=== PATIENT | female | born 1955 | race Asian ===

== ENCOUNTER 2023-04-25 04:15 | Inpatient (IN) | payer MEDICARE, BC ==
[~2023-04-25] VITALS: Ht 162.6 cm; Wt 79.5 kg
[~2023-04-25 04:15] MED LIST: AML5T PO; ATOR20TA PO; HYDR12.59 PO; METF-370 PO; VALS40TA2 PO
[2023-04-25 05:23] LABS: Urine Bacteria MANY /hpf (None Seen); Urine Blood 3+ /uL (Negative); Urine Clarity Clear (Clear); Urine Color Yellow (Yellow); Urine Mucus FEW (None Seen); Urine Protein, UAD TRACE (Negative); Urine Specific Gravity 1.012 (1.001-1.035); Urine Urobilinogen Normal (Negative); Urine WBC 6 /hpf (0 - 5)
[2023-04-25 06:43] LABS: Basophils # (auto) 0.1 10 ^3/uL (0-0.2); Basophils % (auto) 0.5 % (0.0-2.0); Eosinophils # (auto) 0.1 10 ^3/uL (0-0.8); Eosinophils % (auto) 0.6 % (0.0-7.0); Hemoglobin 13.9 g/dL (12.2-16.2); Lymphocytes # (auto) 1.5 10 ^3/uL (0.4-5.4); Lymphocytes % (auto) 13.8 % (10.0-50.0); Mean Corpuscular Hemoglobin 30.9 pg (28.0-32.0); Mean Corpuscular Volume 93.4 fL (80.0-100.0); Monocytes # (auto) 0.7 10 ^3/uL (0-1.3); Monocytes % (auto) 6.6 % (0.0-12.0); Neutrophils # (auto) 8.5 10 ^3/uL (1.6-8.6); Neutrophils % (auto) 78.5 % (37.0-80.0); Red Blood Cells 4.49 10^6/uL (4.0-5.20); Red Cell Distribution Width 14.6 % (11.8-14.3); White Blood Cell 10.9 10^3/uL (4.4-10.8)
[2023-04-25 06:56] LABS: Potassium 3.9 mmol/L (3.5-5.1)
[2023-04-25 07:05] LABS: Albumin 4.2 g/dL (3.4-5.0); BUN/Creatinine Ratio 12.8 (10.0-20.0); Bilirubin, Total 0.8 mg/dL (0.2-1.0); Calcium 9.5 mg/dL (8.5-10.1); Total Protein 8.5 g/dL (6.4-8.2)
[2023-04-25] MEDS ORDERED: SODIUM CHLORIDE 0.9% 1,000 ML IV ONE (08:45)
[2023-04-25] MEDS ORDERED: MORPHINE SULFATE INJ 2 MG/ml SYRG IV ONE (08:45)
[2023-04-25] MEDS ORDERED: KETOROLAC TROMETH 30 MG/ML 1ML VIAL IV ONE (08:45)
[2023-04-25] MEDS ORDERED: ONDANSETRON HCL 4 MG/2 ML VIAL IV ONE (08:45)
[2023-04-25 09:00] VITALS: PULSE 90; RESP 26; O2SAT 96
[2023-04-25] MEDS ORDERED: TAMSULOSIN HYDROCHLORIDE 0.4 MG CAP PO ONE (09:00)
[2023-04-25] MEDS ORDERED: DEXTROSE (50%) 50ML SYRG IV PRN (09:00)
[2023-04-25] MEDS ORDERED: MORPHINE SULFATE INJ 2 MG/ml SYRG IV PRN (09:00)
[2023-04-25] MEDS ORDERED: ONDANSETRON HCL 4 MG/2 ML VIAL IV PRN (09:00)
[2023-04-25] MEDS ORDERED: DOCUSATE SOD 100 MG CAP PO PRN (09:00)
[2023-04-25] MEDS ORDERED: VALS40TA2 PO (10:36)
[2023-04-25] MEDS ORDERED: HYDR12.59 PO (10:36)
[2023-04-25] MEDS ORDERED: METF-370 PO (10:36)
[2023-04-25] MEDS: amLODIPine BESYLATE 5 MG TAB PO SCH (10:38)
[2023-04-25] MEDS: SODIUM CHLORIDE 0.9% 1,000 ML IV SCH ×2 (10:38→15:31)
[2023-04-25] MEDS: InsuLIN REG 1unit/0.01ml Soln (100units/ml) SC SCH ×3 (11:28→21:51)
[2023-04-25] MEDS: ACCU-CHEK COMFORT CURVE STRIP VI SCH ×3 (11:29→21:42)
[2023-04-25] MEDS: HCTZ 25 MG TAB PO SCH (11:32)
[2023-04-25] MEDS: VALSARTAN 80 MG TAB PO SCH (11:32)
[2023-04-25 15:11] VITALS: PULSE 61; RESP 14; O2SAT 94
[2023-04-25 15:40] VITALS: BP 134/84; PULSE 61; RESP 14; TEMP 98.3; O2SAT 94
[2023-04-25] MEDS ORDERED: CHOL20007 PO (16:13)
[2023-04-25] MEDS ORDERED: VITA200T2 PO (16:13)
[2023-04-25 17:00] VITALS: BP 134/84; PULSE 61; RESP 14; TEMP 98.3; O2SAT 94
[2023-04-25] MEDS: TAMSULOSIN HYDROCHLORIDE 0.4 MG CAP PO SCH (17:43)
[2023-04-25 20:00] VITALS: BP 131/76; PULSE 91; RESP 20; TEMP 98.2; O2SAT 92
[2023-04-25 21:38] VITALS: BP 131/76; PULSE 91; RESP 20; TEMP 98; O2SAT 92
[2023-04-25] MEDS ORDERED: ATORVASTATIN 20 MG TAB PO SCH (22:00)
[2023-04-26] VITALS (7 sets, daily range): BP systolic 118–154; BP diastolic 70–97; PULSE 84–128; RESP 14–19; TEMP 98.3–99.2; O2SAT 91–95
[2023-04-26] MEDS: SODIUM CHLORIDE 0.9% 1,000 ML IV SCH ×3 (00:11→18:20)
[2023-04-26 05:28] LABS: Basophils # (auto) 0 10 ^3/uL (0-0.2); Basophils % (auto) 0.5 % (0.0-2.0); Eosinophils # (auto) 0.2 10 ^3/uL (0-0.8); Eosinophils % (auto) 3.8 % (0.0-7.0); Hematocrit 38.9 % (36.0-46.0); Hemoglobin 12.8 g/dL (12.2-16.2); Lymphocytes # (auto) 1.7 10 ^3/uL (0.4-5.4); Lymphocytes % (auto) 25.8 % (10.0-50.0); Mean Corpuscular Hemoglobin 30.6 pg (28.0-32.0); Mean Corpuscular Hgb Conc. 32.9 g/dL (32.0-36.0); Mean Corpuscular Volume 93.1 fL (80.0-100.0); Monocytes # (auto) 0.7 10 ^3/uL (0-1.3); Monocytes % (auto) 10.9 % (0.0-12.0); Neutrophils # (auto) 3.8 10 ^3/uL (1.6-8.6); Nucleated Red Blood Cells % 0.1 %; Red Blood Cells 4.18 10^6/uL (4.0-5.20); Red Cell Distribution Width 14.6 % (11.8-14.3); White Blood Cell 6.4 10^3/uL (4.4-10.8)
[2023-04-26 05:51] LABS: Albumin 3.5 g/dL (3.4-5.0); BUN/Creatinine Ratio 14.7 (10.0-20.0); Calcium 8.7 mg/dL (8.5-10.1); Potassium 3.4 mmol/L (3.5-5.1)
[2023-04-26 05:54] LABS: Bilirubin, Total 0.9 mg/dL (0.2-1.0); Total Protein 7.4 g/dL (6.4-8.2)
[2023-04-26] MEDS: InsuLIN REG 1unit/0.01ml Soln (100units/ml) SC SCH ×4 (06:49→21:43)
[2023-04-26] MEDS: ACCU-CHEK COMFORT CURVE STRIP VI SCH ×4 (06:50→21:38)
[2023-04-26] MEDS: levoFLOXacin 500MG 100 ML IV SCH (08:57)
[2023-04-26] MEDS: amLODIPine BESYLATE 5 MG TAB PO SCH (09:02)
[2023-04-26] MEDS: VALSARTAN 80 MG TAB PO SCH (09:02)
[2023-04-26] MEDS: HCTZ 25 MG TAB PO SCH (09:03)
[2023-04-26 16:31] LABS: Calcium 9.6 mg/dL (8.5-10.1); Potassium 3.3 mmol/L (3.5-5.1)
[2023-04-26 16:43] LABS: BUN/Creatinine Ratio 11.6 (10.0-20.0); Bilirubin, Total 0.7 mg/dL (0.2-1.0); Total Protein 8.5 g/dL (6.4-8.2)
[2023-04-26] MEDS ORDERED: POTASSIUM EFFERVESENT TAB 25 MEQ PO ONE (17:15)
[2023-04-26] MEDS: TAMSULOSIN HYDROCHLORIDE 0.4 MG CAP PO SCH (19:02)
[2023-04-26 21:44] LABS: INR 1.05 (0.9-1.15); Partial Thromboplastin Time 24.9 SEC (24.5-34.5)
[2023-04-26] MEDS ORDERED: ATORVASTATIN 20 MG TAB PO SCH (22:00)
[2023-04-27 04:45] VITALS: BP 134/91; PULSE 92; RESP 16; TEMP 98.8; O2SAT 94
[2023-04-27] MEDS: SODIUM CHLORIDE 0.9% 1,000 ML IV SCH (05:41)
[2023-04-27] MEDS: InsuLIN REG 1unit/0.01ml Soln (100units/ml) SC SCH (06:26)
[2023-04-27] MEDS: ACCU-CHEK COMFORT CURVE STRIP VI SCH (06:27)
[2023-04-27 06:42] LABS: Basophils # (auto) 0 10 ^3/uL (0-0.2); Basophils % (auto) 0.6 % (0.0-2.0); Eosinophils # (auto) 0.3 10 ^3/uL (0-0.8); Hematocrit 40.1 % (36.0-46.0); Hemoglobin 13.5 g/dL (12.2-16.2); Lymphocytes # (auto) 1.9 10 ^3/uL (0.4-5.4); Lymphocytes % (auto) 26.9 % (10.0-50.0); Mean Corpuscular Hemoglobin 31.2 pg (28.0-32.0); Mean Corpuscular Hgb Conc. 33.6 g/dL (32.0-36.0); Mean Corpuscular Volume 92.9 fL (80.0-100.0); Monocytes # (auto) 0.8 10 ^3/uL (0-1.3); Monocytes % (auto) 11.4 % (0.0-12.0); Neutrophils % (auto) 57.1 % (37.0-80.0); Nucleated Red Blood Cells % 0.1 %; Red Blood Cells 4.32 10^6/uL (4.0-5.20); Red Cell Distribution Width 14.2 % (11.8-14.3)
[2023-04-27 06:59] LABS: Potassium 3.4 mmol/L (3.5-5.1)
[2023-04-27 07:14] LABS: Albumin 3.7 g/dL (3.4-5.0); BUN/Creatinine Ratio 10.3 (10.0-20.0); Bilirubin, Total 0.9 mg/dL (0.2-1.0); Calcium 9.3 mg/dL (8.5-10.1); Total Protein 7.7 g/dL (6.4-8.2)
[2023-04-27 08:00] VITALS: PULSE 114; RESP 16
[2023-04-27] MEDS: levoFLOXacin 500MG 100 ML IV SCH (08:53)
[2023-04-27 08:54] VITALS: BP 142/82; PULSE 91; RESP 16; TEMP 98; O2SAT 100
[2023-04-27] MEDS: VALSARTAN 80 MG TAB PO SCH (08:54)
[2023-04-27] MEDS: amLODIPine BESYLATE 5 MG TAB PO SCH (08:55)
[2023-04-27] MEDS ORDERED: HCTZ 25 MG TAB PO SCH (10:00)
[2023-04-27 13:34] LABS: Hepatitis A Ab IgM Negative; Hepatitis B Core IgM Negative; Hepatitis B Surface Antigen Negative (Negative)
[2023-04-27 13:35] LABS: Hepatitis C Antibody Negative (Negative)
== END 2023-04-27 17:39 | disposition left against medical advice (07) | DRG 693 ==
LOC: ER 04:15 → OVERFLOW 10:15 → WEST WING 14:53 → TELE-WESTW 04-26 18:02
PROVIDERS: ADMIT Internal Medicine; ATTEND Student in an Organized Health Care Education/Training Program
DX: N13.2 Hydronephrosis with renal and ureteral calculous obstruction (principal); J18.9 Pneumonia, unspecified organism; E11.65 Type 2 diabetes mellitus with hyperglycemia; R59.9 Enlarged lymph nodes, unspecified; Z53.29 Procedure and treatment not carried out because of patient's decision for other reasons; I10 Essential (primary) hypertension; E78.5 Hyperlipidemia, unspecified; K76.0 Fatty (change of) liver, not elsewhere classified; Z88.5 Allergy status to narcotic agent; Z79.899 Other long term (current) drug therapy; Z90.49 Acquired absence of other specified parts of digestive tract
CPT/HCPCS: 36415; 71046; 74176; 76705; 76775; 80053; 80061; 80074; 81001; 82962; 83036; 83690; 84443; 85025; 85379; 85610; 85730; 87081; 87086; 93005; G0378; J1815; J1885; J1956; J2405